=== PATIENT | male | born 2000 | race Caucasian/White ===

== ENCOUNTER 2024-07-30 23:54 | Inpatient (IN) | payer OTHER, BC, SELFPAY ==
[2024-07-30 23:58] VITALS: BP 141/93; PULSE 95; RESP 18; TEMP 37.1; O2SAT 99
[2024-07-31] VITALS (24 sets, daily range): BP systolic 108–140; BP diastolic 68–104; PULSE 60–146; RESP 9–21; TEMP 36.2–37.1; O2SAT 96–99; BMI 30.5; BMI 30.9
--- NOTE | 2024-07-31 00:01 | EKG_ITS ---
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
--- NOTE | 2024-07-31 00:49 | EDNOTE_ITS ---
ED Arrhythmia Palp. RME/HPI General Chief Complaint: Arrhythmia/Palpitations Stated Complaint: PALPITATIONS Time Seen by Provider: 07/31/24 00:17 Arrival date/time: 07/30/24 23:54 RME / HPI RME / HPI narrative: Dr. Davila?s Main ED Evaluation: 23yo male presents to the ED for a chief complaint of palpitations. Patient states he started having palpitations x 1 hour [employer]. He reports associated mild shortness of breath. Patient states he's had one episode of aFib in 2020 that was suspected to be due to excessive energy drinks and related to stress. Patient states he has since stopped drinking energy drinks. He was on diltiazem for 8 months, but is no longer on it due to not having any further incidents until today. He denies any chest pain, N/V or any other associated symptoms. Denies any alcohol or illicit drug use. No known allergies. Related Data Previous Rx's ?Medication ?Instructions ?Recorded amoxicillin 875 mg-potassium 1 tab PO Q12H #20 tabs clavulanate 125 mg tablet (Augmentin) fluticasone propionate 50 50 mcg intranasal QDAY #9.9 grams 08/04/17 mcg/actuation nasal spray,suspension (Flonase Allergy Relief) loratadine-pseudoephedrine ER 10 1 tab PO Q24H #10 tab s 08/04/17 mg-240 mg tablet,extended [id number] (Claritin-D 24 Hour) Allergies Allergy/AdvReac Type Severity Reaction Status Date / Time No Known Allergies Allergy Verified 07/30/24 23:58 Review of Systems Review of Systems Systems Reviewed: All systems reviewed, normal except as documented Past Medical History Past Medical History CARDIAC: Negative Congestive Heart Failure RESPIRATORY: Negative Chronic Obstructive Pulmonary Disease (COPD) GENITOURINARY: Negative Renal Disease ENDOCRINE: Negative Diabetes Mellitus Type 1 or Diabetes Mellitus Type 2 Social History SMOKING STATUS: Never smoker ED Exam Narrative Physical exam: GENERAL APPEARANCE: alert and oriented x 4, well-developed, well-nourished, no acute distress VITALS: All vitals were reviewed and the pulse ox is % on room air, which is normal according to my interpretation. HEENT: Normocephalic, atraumatic; pupils equal, round, reactive to light; EOMI; mucous membranes pink, moist; oropharynx clear NECK: Supple LUNGS: CTABL; no wheezes, no rales, no rhonchi HEART: Irregularly irregular tachycardia; normal S1, S2; no murmurs ABDOMEN: non distended; normal BS; soft, no tenderness, no guarding, no rebound; no masses, no organomegaly, no hernia BACK: no CVA tenderness EXTREMITIES: atraumatic; no edema NEUROLOGIC: awake; alert and oriented x4; cranial nerves II-XII grossly intact; no focal sensory or motor deficits PSYCHIATRIC: appropriate mood and affect SKIN: warm, dry, normal color; no rashes Course Quality Measures none Orders Category Date Time Status EKG (ED ONLY) *Do not use* NOW Care 07/31/24 00:01 Completed EKG (ED Only) Stat Exams 07/31/24 00:01 Draft EKG (ED Only) Stat Exams 07/31/24 00:01 Stop Req Reevaluation(s) Reevaluation #1: Patient is still in aFib with a HR in the 120s despite being given Cardizem 10mg and NS. His blood pressure has normalized. Cardizem drip ordered. Time: 02:12 Vital Signs Vital signs: Vital Signs Temperature 98.8 F 07/30/24 23:58 Pulse Rate 95 07/30/24 23:58 Respiratory Rate 18 07/30/24 23:58 Blood Pressure 141/93 H 07/30/24 23:58 Pulse Oximetry (%) 99 07/30/24 23:58 Oxygen Delivery Method Room Air 07/30/24 23:58 Arrhythmia/Palpitations MDM Narrative MDM Narrative:: Scribe Attestation: 07/31/24 Maria Morataya am scribing for and in the presence of Dr. Davila. Patient data External records reviewed:: [facility] previous records (Per chart review, patient has no previous ED visits or admissions to this facility.) Clinical information provided by:: patient Social determinants that could affect healthcare access:: none Patient has the following chronic illnesses:: none How is presenting disease/condition affected by chronic disease/condition?: no chronic disease Evaluation data The following diagnostics were reviewed and interpreted by me:: lab results and EKG tracing(s) Lab and/or radiology exams considered but not ordered:: none Interpretation Summary: CBC is normal, CMP is normal, Troponin is normal, TSH and Free T4 are normal, according to my interpretation. EKG done at 0010, aFib RvR, rate of 157, normal axis, no acute ischemia, according to my interpretation. Medications / Prescriptions Medications or Prescriptions considered but not ordered:: none Medication administrations:: Cardizem, NS Consultations Consultation(s) initiated? (list below): Yes Consultation #1 (Physician, Specialty, Details): Discussed case with [Dr. Pickett] from Hospitalist service regarding admission. Discussed patients ED course, exam findings, labs, and radiology results. The Hospitalist [agrees] to accept the patient for admission. Time: 02:13 Diagnosis Differential diagnosis arrhythmia/palpitations: palpitations, anxiety, artial fibrillation and artial flutter Most likely diagnosis given after review of the tests above:: see below Admission Indicated Admission indicated?: indicated Admission Request Was there a request for admission?: Yes Admission Attestation Admission request attestation: Discussed case with [] from Hospitalist service regarding admission. Discussed patients ED course, exam findings, labs, and radiology results. The Hospitalist [agrees,declines] to accept the patient for admission. Disposition Plan Disposition Plan: Admit Critical Care Time Critical Care Time Critical Care Time: Yes Total Critical Care Time (min.): 35 Attestation: The high probability of sudden, clinically significant deterioration in the pa tient?s condition required the highest level of my preparedness to intervene urgently. The services I provided to this patient were to treat and/or prevent clinically significant deterioration. Services included the following: chart data review, reviewing nursing notes and/or old charts, documentation time, workforce consultant collaboration regarding findings and treatment options, medication orders and management, direct patient care, vital sign assessments and ordering, interpreting and reviewing diagnostic studies and lab tests. Aggregate critical care time includes only time during which I was engaged in work directly related to the patient?s care, as described above, whether at bedside or elsewhere in the Emergency Department. It did not include time spent performing other reported procedures or the services of residents, students, nurses or physician assistants. Discharge Plan Plan Patient Disposition: Admit Acute Care w/in Hospital Prescriptions/Referrals Prescriptions/Med Rec: No Action loratadine-pseudoephedrine [Claritin-D 24 Hour] 10-240 mg tablet extended release 24 hr 1 tab PO Q24H Qty: 10 0RF fluticasone propionate [Flonase Allergy Relief] 50 mcg/actuation spray,suspension 50 mcg INTRANASAL QDAY Qty: 9.9 0RF amoxicillin-pot clavulanate [Augmentin] 875-125 mg tablet 1 tab PO Q12H Qty: 20 0RF Referrals: Dunia Hall NP [Primary Care Provider] - In 1 week Problem List Clinical Impression: Atrial fibrillation with rapid ventricular response Patient/Caregiver Discharge Instructions Print Language: Hungarian Stand Alone Forms: Kelly Award Info., Patient Portal Info Letter
[2024-07-31] MEDS: SODIUM CHLORIDE 0.9% 1000 ML 1,000 ML 999 ML IV (01:05)
[2024-07-31] MEDS: DILTIAZEM INJ 5 MG/ML VIAL 5 ML 10 MG IV (01:05)
[2024-07-31 01:30] LABS: Basophils # (Auto) 0.1 Thou/mm3 (0.0-0.2); Basophils % (Auto) 1 % (0-2.5); Eosinophils # (Auto) 0.1 Thou/mm3 (0.0-0.5); Eosinophils % (Auto) 1 % (0-10); Hematocrit 46.6 % (41.0-53.0); Hemoglobin 17.1 g/dL (13.5-16.0); Immature Granulocytes % (Auto) 0 % (0-0); Immature Granulocytes Auto 0.02 Thou/mm3 (0.00-0.00); Lymphocytes # (Auto) 4.5 Thou/mm3 (1.0-4.8); Lymphocytes % (Auto) 45 % (10-50); Mean Corpuscular HGB Conc 36.7 g/dl (31.0-37.0); Mean Corpuscular Hemoglobin 30.9 pg (25.0-35.0); Mean Corpuscular Volume 84 fL (80-100); Monocytes # (Auto) 0.6 Thou/mm3 (0.0-0.8); Monocytes % (Auto) 6 % (0-12); Neutrophils # (Auto) 4.7 Thou/mm3 (1.8-7.7); Neutrophils % (Auto) 47 % (37-80); Nucleated Red Blood Cell % 0 /100 WBC (0); Platelet Count 257 Thou/mm3 (140-440); RDW Standard Deviation 36.3 fL (35.1-43.9); Red Blood Count 5.54 Miln/mm3 (4.50-5.90); White Blood Count 10.1 Thou/mm3 (3.8-10.6)
[2024-07-31 01:43] LABS: Alanine Aminotransferase 26 U/L (10-49); Albumin/Globulin Ratio 1.8 (1.2-2.2); Alkaline Phosphatase 99 U/L (46-116); Anion Gap 10 (7-16); Aspartate Amino Transferase 23 U/L (0-34); BUN/Creatinine Ratio 14 Ratio (12-20); Bilirubin,Total 0.4 mg/dL (0.3-1.2); Blood Urea Nitrogen 15 mg/dL (9-23); Calcium 10.6 mg/dL (8.3-10.6); Calcium (Corrected) 10.6 mg/dL (8.5-10.1); Carbon Dioxide 27.4 mMol/L (20.0-31.0); Chloride 107 mMol/L (98-107); Creatinine (Component) 1.1 mg/dL (0.6-1.3); Estimated Creatinine Clearance 124.4 mL/min (>60); Free T4 (Free Thyroxine) 1.31 ng/dL (0.89-1.76); Globulin 2.8 gm/dL (2.3-3.5); Glucose 92 mg/dL (74-106); Magnesium 2.2 mg/dL (1.6-2.6); Osmolality,Calculated 287 (275-295); Potassium 3.8 mMol/L (3.4-5.1); Sodium 144 mMol/L (136-145); Thyroid Stimulating Hormone 2.96 uIU/mL (0.55-4.78); Total Protein 7.8 gm/dL (5.7-8.2); Troponin I < 0.020 ng/mL (0.0-0.045); eGFR > 60 See Note
--- NOTE | 2024-07-31 02:13 | XR_ITS ---
Examination: AP chest single view Technique one AP portable upright chest single view Exam date and time: July 31, 2022 at 0222 hrs. Comparison April 15, 2014 Indications: Findings: Normal heart size No pneumonia or pulmonary edema. The osseous structures are intact Impression: No active disease
--- NOTE | 2024-07-31 02:36 | ECHO_ITS ---
Transthoracic Echo Report Ht (in): 71 Wt (lb): 220 Exam Location: Echo Lab Status: Emergency Procurement Analyst: CAMILLE Curry^^^^ Indications: Procedure Performed: BP: 128 / 74 HR: 153 Rhythm: Atrial fibrillation Technical Quality: Fair MEASUREMENTS (Male / Female) Normal Values 2D ECHO LV Diastolic Diameter PLAX 4.6 cm 4.2 - 5.9 / 3.9 - 5.3 cm LV Systolic Diameter PLAX 3.0 cm IVS Diastolic Thickness 1.0 cm 0.6 - 1.0 / 0.6 - 0.9 cm LVPW Diastolic Thickness 0.8 cm 0.6 - 1.0 / 0.6 - 0.9 cm LV Relative Wall Thickness 0.4 LVOT Diameter 2.1 cm Aortic Root Diameter 3.6 cm LA Systolic Diameter LX 3.4 cm 3.0 - 4.0 / 2.7 - 3.8 cm LV Ejection Fraction MOD BP 60.6 % >= 55 % LV Cardiac Index MOD BP 3978.1 cm?/min?m? LV Ejection Fraction MOD 4C 64.5 % LV Cardiac Index MOD 4C 4323.1 cm?/min?m? LV Ejection Fraction 4C AL 65.1 % LV Cardiac Index 4C AL 4462.4 cm?/min?m? LV Ejection Fraction MOD 2C 53.1 % LV Cardiac Index MOD 2C 3288.0 cm?/min?m? LV Ejection Fraction 2C AL 55.3 % LV Cardiac Index 2C AL 3476.7 cm?/min?m? LA Volume Index 18.3 cm?/m? 16 - 28 cm?/m? Ascending Aorta Diameter 3.7 cm DOPPLER AV Peak Velocity 153.5 cm/s AV Peak Gradient 9.4 mmHg AV Mean Gradient 7.0 mmHg AV Velocity Time Integral 24.6 cm LVOT Peak Velocity 103.0 cm/s LVOT Peak Gradient 4.2 mmHg LVOT Velocity Time Integral 20.9 cm LVOT Cardiac Index 4897.4 cm?/min?m? AV Area Cont Eq vti 2.9 cm? AV Area Cont Eq pk 2.3 cm? MV Area PHT 2.9 cm? MR Peak Velocity 429.0 cm/s MR Peak Gradient 73.6 mmHg Mitral E Point Velocity 74.2 cm/s Mitral A Point Velocity 37.8 cm/s Mitral E to A Ratio 2.0 LV E' Lateral Velocity 13.4 cm/s Mitral E to LV E' Lateral Ratio 5.5 LV E' Septal Velocity 14.7 cm/s Mitral E to LV E' Septal Ratio 5.0 TR Peak Velocity 227.0 cm/s TR Peak Gradient 20.6 mmHg RVOT Peak Velocity 68.7 cm/s FINDINGS Left Ventricle Normal left ventricular size, wall thickness, systolic function with no obvious regional wall motion abnormalities. Normal left ventricular diastolic filling pattern for age. The ejection fraction is visually estimated at 65 %. Right Ventricle The right ventricle is normal in size and systolic function. The estimated right ventricular systolic pressure, 33 mmHg. Left Atrium The left atrium is normal by two-dimensional, color flow and Doppler imaging with no structural abnormalities, no thrombus formation present. Right Atrium The right atrium is normal by two-dimensional imaging, color flow and Doppler imaging with no structural abnormalities, no thrombus formation present. Atrial Septum The interatrial septum appears normal with no evidence of a shunt. Aorta The aorta is normal by two-dimensional, color flow and Doppler interrogation. Mitral Valve Structurally normal mitral valve. Mild mitral regurgitation. Aortic Valve The aortic valve is trileaflet and normal by two-dimensional, color flow and Doppler interrogation. There is no significant aortic valve regurgitation. Tricuspid Valve There is mild tricuspid valve regurgitation. Pulmonic Valve Trivial pulmonic valve regurgitation. Vessels The pulmonary artery appears normal. The inferior vena cava pulmonary and hepatic veins appear normal. Pericardium The pericardium is normal by two-dimensional imaging. There is no significant pericardial effusion. CONCLUSIONS indication: Afib The transthoracic study is normal by two-dimensional, color flow imaging and Doppler interrogation. Normal left ventricular size and function. Approximate ejection fraction is 65%. Mitral valve prolapse with mild mitral regurgitation Mild tricusoid regurgitation Diamond Hardwick (Electronically Signed) Final Date: 31 July 2024 09:59
--- NOTE | 2024-07-31 02:39 | EVENTNT_ITS ---
Documentation for date of: 07/31/24 Event Note Event Note: A 23-year-old male presented to the ER with the chief complaint of palpitations. The patient reports that the palpitations began approximately one hour prior to arrival while he was lying in bed. He describes a sudden onset of rapid heart rate, feeling as if his heart was beating out of his chest. He used his Apple Watch to perform an EKG, which suggested possible atrial fibrillation, prompting him to seek medical evaluation. He denies associated fever, recent illness, chest pain, dizziness, syncope, or recent stimulant use. He reports a similar episode of atrial fibrillation in 2020, which was attributed to excessive energy drink consumption and stress during college finals. At that time, he converted to normal sinus rhythm after treatment with diltiazem and was prescribed oral diltiazem for eight months, which was later discontinued. He denies any prior history of recurrent atrial fibrillation until tonight. The patient has no known history of hypertension, diabetes, or other significant medical conditions. He reports no current medication use aside from a rescue inhaler, which he has not used in several years. Social history is significant for occasional alcohol consumption, approximately two drinks per week, with the last drink occurring a couple of days prior to presentation. He denies tobacco or drug use. In the Emergency Department, the patient was initially evaluated with vital signs recorded as temperature 98.8?F, heart rate 142 bpm, respiratory rate 18 breaths per minute, and blood pressure 138/104 mmHg. EKG confirmed atrial fibrillation with rapid ventricular response. Laboratory results revealed WBC 10.4, hemoglobin 17.1, platelet count 257, sodium 144, potassium 3.8, BUN 15, creatinine 1.1, TSH 2.96, and free T4 1.31. A chest X-ray showed no active disease. The patient was treated with a diltiazem 10 mg IV bolus followed by a continuous infusion. He was admitted for further management with cardiology consultation planned for the following morning. #Atrial Fibrillation with Rapid Ventricular Response * Assessment: The patient presents with acute-onset atrial fibrillation with RVR, confirmed by EKG. He has a prior history of atrial fibrillation in 2020, likely triggered by energy drink consumption and stress, but no known history of structural heart disease or recurrent arrhythmias. His current episode appears idiopathic, with no clear provoking factors such as infection, thyroid dysfunction, or stimulant use. He remains hemodynamically stable, with no evidence of acute ischemia or heart failure. Initial response to IV diltiazem was appropriate. * Plan: * Continue IV diltiazem infusion with transition to oral therapy as tolerated. * Cardiology consultation for further workup and long-term management. * Rhythm control consideration: Given the patient?s young age, evaluate for cardioversion (pharmacologic or electrical) if AF persists. Long-term rhythm control options (e.g., antiarrhythmic therapy) should be discussed with cardiology. * Anticoagulation: [id number] Score = 0; anticoagulation not indicated at this time. * Maintain normal potassium and magnesium levels to prevent further arrhythmias. * Continuous telemetry monitoring while inpatient. * Patient education on avoiding potential triggers (e.g., caffeine, energy drinks, excessive alcohol), recognizing AF symptoms, and the importance of cardiology follow-up.
[2024-07-31] MEDS: DILTIAZEM INJ 125 MG in DEXTROSE 5%-WATER 100 ML IV (02:51)
--- NOTE | 2024-07-31 02:57 | ESHP_ITS ---
Documentation for date of: 07/31/24 [facility] History of Present Illness History of present illness: Is a 23-year-old male with PMH of exercise-induced asthma, previous non- recurrent episode of of A-fib in 2020, presenting with palpitation and shortness of breath. Patient at bedside, sitting at home watching TV around 11 PM when he noticed palpitations and his heart associated with trouble catching his breath. He states it felt similar to when he had A-fib 2 years ago and decided to return to hospital. He had similar episode in 2020 for which at an outside hospital. At the time it was attributed to excessive energy drinks which she had stopped since then. He had been followed up by cardiology who performed echocardiogram, and stress echo which were all negative. He was on DILTIAZEM daily which was stopped 8 months ago by his biomedical equipment support specialist. No recurrent episodes until now. States he doesn't drink energy drinks since the incident. He consumes 1 coffee daily. Denies history of alcohol or tobacco use, COCAINE, METHAMPHETAMINE, other drug use or stimulants, [id number] medications, or supplements supplements. He is only medication is an inhaler which he uses occasionally for exercise-induced asthma but haven't used in months. Denies current or previous stress. No excessive workout or exercise. History pertinent for corticosteroids due to premature , and recurrent bronchitis during infancy which had resolved by the time he was 1 to 2 years old. No family history of congenital heart defect, valvular disease, HCM, sudden cardiac , A-fib, thyroid disease, or autoimmune or inflammatory disease. Denies headaches, fever, chills, visual changes, seizures, chest pain, cough, abdominal pain, N/V/D/C, dysuria, urinary frequency or urgency, or abnormal bleed. ED COURSE: Afebrile, HR 146, BP 126/85, satting 98% on room air. CBC significant for hemoglobin 17.1, otherwise WNL. Calcium 10.6. Remainder chemistry panel was normal including troponin, TSH/free T4, and electrolytes. EKG showed A-fib with RVR, HR 157. CXR does not show active disease. He was started on DILTIAZEM drip and ENOXAPARIN. Admitted for A-fib with RVR. PMHx: Premature , recurrent bronchitis during infancy, exercise-induced asthma. PSHx: None. MEDS: ALBUTEROL inhaler occasionally. ALLERGIES: NKA. FHx: No relevant family history as explained above. SH: Denies alcohol, tobacco, illicit drug use or stimulant use. Exam Vital Signs Temp Pulse Resp BP Pulse Ox O2 Del Method 98.7 F 146 H 17 126/85 H 98 Room Air 07/31/24 02:16 07/31/24 02:51 07/31/24 02:16 07/31/24 02:51 07/31/24 02:16 07/31/24 02:16 Results: Labs 07/31/24 04:30 07/31/24 00:55 Labs: Short CBC 07/31/24 Range/Units 00:55 WBC 10.1 (3.8-10.6) Thou/mm3 Hgb 17.1 H (13.5-16.0) g/dL Hct 46.6 (41.0-53.0) % Plt Count 257 (140-440) Thou/mm3 BMP 07/31/24 00:55 Sodium 144 Potassium 3.8 Chloride 107 Carbon Dioxide 27.4 BUN 15 Creatinine 1.1 Glucose 92 Calcium 10.6 Cardiac Enzymes 07/31/24 Range/Units 00:55 Troponin I < 0.020 (0.0-0.045) ng/mL Liver Function 07/31/24 Range/Units 00:55 Total Bilirubin 0.4 (0.3-1.2) mg/dL AST 23 (0-34) U/L ALT 26 (10-49) U/L Alkaline Phosphatase 99 (46-116) U/L Albumin 5.0 (3.5-5.0) gm/dL Quality Measures Quality Measures none Medications Home Medications and Allergies Allergies Allergy/AdvReac Type Severity Reaction Status Date / Time No Known Allergies Allergy Verified 07/30/24 23:58 Visit Medications Enoxaparin Sodium (Enoxaparin Sod Inj 40 Mg/0.4 Ml Syringe) 40 mg SC QDAY [facility] Stop: 08/14/24 08:59 Diltiazem HCl 125 mg/ Dextrose 125 mls @ 5 mls/hr IV .Q24H [facility]; Protocol Stop: 08/30/24 02:12 Last Admin: 07/31/24 02:51 Dose: 5 mg/hr, 5 mls/hr Discontinued Medications Diltiazem HCl (Diltiazem Inj 5 Mg/Ml Vial 5 Ml) 10 mg IV X1 ONE Stop: 07/31/24 00:51 Last Admin: 07/31/24 01:05 Dose: 10 mg Sodium Chloride (Ns) 1,000 mls @ 999 mls/hr IV .Q1H1M ONE Stop: 07/31/24 01:50 Last Infusion: 07/31/24 02:19 Dose: Infused Assessment & Plan Plan In summary: 39-year-old male with PMH of exercise-induced asthma, previous non- recurrent episode of of A-fib in 2020, presenting with palpitation and shortness of breath. Admitted for atrial fibrillation with RVR. Continued on DILTIAZEM drip. Appreciate recommendations from cardiology, Dr. Enamorado. Atrial fibrillation with RVR DDx: Idiopathic, caffeine induced, dehydration, lung dysfunction, electrophysiology. Presenting with palpitations and shortness of breath. Denies chest pain, fever, or systemic illness, or stress. EKG showed A-fib with RVR, HR 157, QTc 407. Had similar recurrent episode in 2020 with benign cardiac workup attributed to excessive energy drinks consumption. He was previously on DILTIAZEM daily for 8 months, discontinued by cardiology. No family history of cardiovascular, cardiopulmonary, sudden , rheumatoid disease. Review of system overall negative except for premature and recurrent bronchitis during infancy. Drinks 1 cup of coffee daily. Denies use of alcohol, tobacco, illicit drugs, stimulants, supplements, or energy drinks. Labs significant for hemoglobin 17.1, calcium 11.6, otherwise benign. Normal thyroid function. No electrolyte abnormalities. Cardiac exam showed A-fib, no murmur, no rubs or gallops, clear breath sounds bilaterally. Currently on room air, satting in upper 90s. [id number] score 0. ? Continue DILTIAZEM GGT ? Continue LOVENOX 40 mg daily ? Maintain K > 4.0 and Mg > 2.0 ? Pending echocardiogram ? Pending cardiology recommendations ? Pending UTOX ? Daily labs Polycythemia Hypercalcemia Hemoglobin 17.1. PLT 257. Calcium 10.6. No history of hemoglobinopathy. Possibly related to dehydration. Completed 1 L NS bolus in ED. ? Continue monitoring ? Consider further workup if it does not correct with hydration. Health maintenance Diet: Regular diet GI prophylaxis: Not indicated DVT prophylaxis: LOVENOX Antibiotics: Not indicated CODE STATUS: Full code Disposition: Pending cardiology recommendations Patient case was discussed with attending, Elliot Pickett MD. Bill Higgins DO PGYI Attending Provider Attestation/Addendum Pt was evaluated and plan formulated together with the housestaff team. I have reviewed the residents note above and agree with most of its content. Please refer to the residents note for additional details.
[2024-07-31] MEDS: POTASSIUM CHLORIDE 20 mEq TABCR PO (03:47)
[2024-07-31 04:19] LABS: Amphetamine/Methamp Scrn,U Negative (Negative); Barbiturate Screen,Urine Negative (Negative); Benzodiazepines Screen,Urine Negative (Negative); Benzoylecgonine Screen, Ur Negative (Negative); Fentanyl Screen,Urine Negative (Negative); Opiate Screen,Urine Negative (Negative); THC Screen,Urine Negative (Negative)
[2024-07-31 05:15] LABS: Basophils # (Auto) 0.1 Thou/mm3 (0.0-0.2); Basophils % (Auto) 1 % (0-2.5); Eosinophils # (Auto) 0.2 Thou/mm3 (0.0-0.5); Eosinophils % (Auto) 2 % (0-10); Hematocrit 44.3 % (41.0-53.0); Hemoglobin 16.2 g/dL (13.5-16.0); Immature Granulocytes % (Auto) 0 % (0-0); Immature Granulocytes Auto 0.02 Thou/mm3 (0.00-0.00); Lymphocytes # (Auto) 3.8 Thou/mm3 (1.0-4.8); Lymphocytes % (Auto) 43 % (10-50); Mean Corpuscular HGB Conc 36.6 g/dl (31.0-37.0); Mean Corpuscular Hemoglobin 30.9 pg (25.0-35.0); Mean Corpuscular Volume 85 fL (80-100); Monocytes # (Auto) 0.6 Thou/mm3 (0.0-0.8); Monocytes % (Auto) 7 % (0-12); Neutrophils # (Auto) 4.1 Thou/mm3 (1.8-7.7); Neutrophils % (Auto) 47 % (37-80); Nucleated Red Blood Cell % 0 /100 WBC (0); Platelet Count 254 Thou/mm3 (140-440); RDW Standard Deviation 36.3 fL (35.1-43.9); Red Blood Count 5.24 Miln/mm3 (4.50-5.90); White Blood Count 8.7 Thou/mm3 (3.8-10.6)
--- NOTE | 2024-07-31 05:33 | PC.NURSE ---
REPORT GIVEN TO EMILY RAGLAND. ALL QUESTIONS ASKED AND ANSWERED. PATIENT REMAINS ON ROOM AIR. PATIENTS IVF INFUSING WITHOUT DIFFICULTY. PATIENT TAKEN TO ROOM BY STAFF. NO DISTRESS NOTED AT TRANSFER.
[2024-07-31 06:06] LABS: Anion Gap 9 (7-16); BUN/Creatinine Ratio 13 Ratio (12-20); Blood Urea Nitrogen 12 mg/dL (9-23); Calcium 9.5 mg/dL (8.3-10.6); Carbon Dioxide 27.4 mMol/L (20.0-31.0); Chloride 106 mMol/L (98-107); Creatinine (Component) 0.9 mg/dL (0.6-1.3); Glucose 91 mg/dL (74-106); Osmolality,Calculated 282 (275-295); Sodium 142 mMol/L (136-145); eGFR > 60 See Note
[2024-07-31] MEDS: ENOXAPARIN SOD INJ 40 MG/0.4 ML SYRINGE SC (08:25)
[2024-07-31] MEDS: POTASSIUM CHLORIDE 10% 20 MEQ/15 ML UDC PO (09:37)
[2024-07-31] MEDS: Magnesium Sulfate 2 GM Ivpb 2 GM/50 ML BAG IV (09:38)
--- NOTE | 2024-07-31 09:57 | PC.SS ---
Follow up note: Dr. Enamorado is consulting. Pt has AF[employer].
--- NOTE | 2024-07-31 11:34 | ESPR_ITS ---
<Statement entered by Manjit Gonzalez MD - 07/31/24 14:22> Patient admitted overnight for Afib RVR, has history of x1 episode in 2020. Currently on diltiazem, echocardiogram was WNL, pending further reccs by Dr. Enamorado. I discussed with and supervised the internet security specialist physician involved in the care of this patient. Patient assessment and plan was discussed with entire medicine team, including my attending. I agree with the assessment and plan as documented by internet security specialist doctor. Patient care was discussed with my attending physician Dr. Lissette Gonzalez, PGY-2 Documentation for date of: 07/31/24 Subjective Subjective Interval history: Patient was seen and examined at bedside this AM. Patient tolerating diet, adequate urine output and mentation is at baseline. Patient endorses improvement of shortness of breath, however still complains of palpitations both at rest and ambulation. From telemetry review patient is still in A-fib with rates between the 100s?150s overnight. Currently on diltiazem infusion at 10 Mg per hour and amiodarone infusion. K4, Mg 2. Repleted with KCl 20 mEq p.o. x 1 and magnesium sulfate 2 g IV x 1 Transthoracic echocardiogram completed on 07/31/2024 findings include: Normal left ventricular size and function. Estimated EF 65%. Mitral valve prolapse with mild MR. Mild TR Exam Vital Signs Temp Pulse Resp BP Pulse Ox O2 Del Method 98.5 F 105 H 18 140/75 H 98 Room Air 07/31/24 08:00 07/31/24 08:00 07/31/24 08:00 07/31/24 08:00 07/31/24 08:00 07/31/24 08:00 Narrative Exam Constitutional Alert, oriented x 3 and comfortable. Young male HEENT Vision grossly intact. Patent nares. Trachea midline Respiratory Chest normal on inspection and clear auscultation bilaterally Cardiovascular S1 and S2 audible, RRR. No murmurs carotid bruit. No gross JVD. Abdominal Soft and non tender to palpation in all quadrants. BS + Genitourinary No bladder tenderness, no flank pain. Normal to palpation Musculoskeletal Extremities tone within normal limits. No LE edema. Neurological CN II - XII grossly intact. Extremity motor and sensation grossly intact. Skin Warm, dry and intact. No apparent lesions. Psychiatric Patient has good affect, is cooperative Objective Labs 07/31/24 04:30 07/31/24 04:30 Labs: Laboratory Results - last 24 hr 07/31/24 07/31/24 07/31/24 00:55 03:40 04:30 WBC 10.1 8.7 RBC 5.54 5.24 Hgb 17.1 H 16.2 H Hct 46.6 44.3 MCV 84 85 MCH 30.9 30.9 MCHC 36.7 36.6 RDW Std Deviation 36.3 36.3 Plt Count 257 254 Neut % (Auto) 47 47 Lymph % (Auto) 45 43 Moody % (Auto) 6 7 Eos % (Auto) 1 2 Baso % (Auto) 1 1 Neut # (Auto) 4.7 4.1 Lymph # (Auto) 4.5 3.8 Moody # (Auto) 0.6 0.6 Eos # (Auto) 0.1 0.2 Baso # (Auto) 0.1 0.1 Immature Gran # (Auto) 0.02 H 0.02 H Absolute Nucleated RBC 0.00 0.00 Immature Gran % 0 0 Nucleated RBC % 0 0 Sodium 144 142 Potassium 3.8 4.0 Chloride 107 106 Carbon Dioxide 27.4 27.4 Anion Gap 10 9 BUN 15 12 Creatinine 1.1 0.9 Estim Creat Clear Calc 124.4 152.0 eGFR > 60 > 60 BUN/Creatinine Ratio 14 13 Glucose 92 91 Calculated Osmolality 287 282 Calcium 10.6 9.5 Corrected Calcium 10.6 H Magnesium 2.2 2.0 Total Bilirubin 0.4 AST 23 ALT 26 Alkaline Phosphatase 99 Troponin I < 0.020 Total Protein 7.8 Albumin 5.0 Globulin 2.8 Albumin/Globulin Ratio 1.8 TSH 2.96 Free T4 1.31 Urine Opiates Screen Negative Urine Fentanyl Screen Negative Ur Barbiturates Screen Negative U Amphetamin/Meth Scrn Negative U Benzodiazepines Scrn Negative U Cocaine Metab Screen Negative U Marijuana (THC) Screen Negative Quality Measures Quality Measures none Assessment & Plan Assessment Current Active Medications: Generic Name Dose Route Start Last Admin Trade Name Freq PRN Reason Stop Dose Admin Enoxaparin Sodium 40 mg 07/31/24 09:00 07/31/24 08:25 Enoxaparin Sod Inj 40 Mg/0.4 Ml Syringe SC 08/14/24 08:59 40 mg QDAY LORRIE Administration Diltiazem HCl 125 mg/ Dextrose 125 mls @ 10 mls/hr 07/31/24 10:07 IV 08/30/24 10:06 .[id number] LORRIE Protocol 10 MG/HR Amiodarone HCl/Dextrose 360 mg in 200 mls @ 16.667 mls/hr 07/31/24 16:46 Nexterone Ivpb IV 08/01/24 16:45 .Q12H LORRIE Amiodarone HCl/Dextrose 360 mg in 200 mls @ 33.333 mls/hr 07/31/24 10:46 Nexterone Ivpb IV 07/31/24 16:45 .Q6H ONE Plan Patient is a 23-year-old male with past history of paroxysmal A-fib [2020] no longer on rate control presented with a chief complaint of palpitations and shortness of breath. Admitted for atrial fibrillation with RVR. Atrial fibrillation with RVR?paroxysmal Patient has a history of A-fib in 2020 and was previously on diltiazem. He was diagnosed at [facility] in [place]. Patient presented with shortness of breath and palpitations EKG significant for atrial fibrillation with RVR, rate 157. No acute ST changes Transthoracic echocardiogram completed on 07/31/2024 findings include: Normal left ventricular size and function. Estimated EF 65%. Mitral valve prolapse with mild MR. Mild TR [id number]? 0. No need for anticoagulation In the ED patient received diltiazem 10 Mg IV x 1 and was subsequently started on diltiazem infusion. Patient endorses improvement of shortness of breath, however still complains of palpitations both at rest and ambulation. From telemetry review patient is still in A-fib with rates between the 100s?150s overnight. Currently on diltiazem infusion at 10 Mg per hour and amiodarone infusion. K4, Mg 2. Repleted with KCl 20 mEq p.o. x 1 and magnesium sulfate 2 g IV x 1 Plan: ? Continue telemetry monitoring ? Requested medical records from [facility] ? Increased diltiazem infusion to 10 Mg per hour ? Started on amiodarone bolus and infusion as per cardiology recommendations ? Cardiology, Dr. Omari Enamorado consulted and closely following the case. Appreciate recommendations Health maintenance: Disposition: Pending cardiology recommendations. Diltiazem and amiodarone infusion Diet: Regular Lines: pIVs GI Prophylaxis: None Thrombo Prophylaxis: Enoxaparin Code status: FULL CODE Plan of care discussed with Attending Dr. Mclaughlin and PGY2 Dr. Carlos Garcia MD PGY 1 Attending Provider Attestation/Addendum Josie Eric DO, attest that I was physically present for the reyna portions of the service and evaluated the patient with the resident and I reviewed and discussed the case with the resident and agree with the resident's findings and plans of care as documented above Patient seen and evaluated this AM. Patient states he continues to have palpitations. HR remains uncontrolled in the 150s on tele. Will increase cardizem drip to 10mg/hr. Patient was previously diagnosed with afib in the past and took cardizem. He does not recall the dose. Patient denies any chest pain or shortness of breath. He denies any stressors or personal/ family history of cardiac disease. Echo shows normal LV size and function. EF of 65% MVP with mild MR. Mild TR. Will f/u with cardiology recommendations.
[2024-07-31] MEDS: AMIODARONE 150 MG IVPB 150 MG/100 ML BAG 600 MG IV (14:53)
--- NOTE | 2024-07-31 15:05 | PC.SS ---
Follow up note: Consulting Dr. Enamorado. Pt has AFB. Pt will return home upon dc.
[2024-07-31] MEDS: AMIODARONE 360 MG IVPB 360 MG/200 ML BAG 33.333 MG IV (15:11)
[2024-07-31] MEDS: DILTIAZEM 30 MG TABLET 60 MG PO ×3 (15:35→23:14)
--- NOTE | 2024-07-31 17:24 | ESCONSULT_ITS ---
<Statement entered by Estefani Enamorado MD - 08/01/24 09:23> I evlauate the patient personall, has paroxysmal AFIB SECOND EPISODE in 4 years will cont Amiodarone until conversion to NSR and disharge in AMtreatment plan as documented by PGY 1 DR Novak HPI Data of Consult Requesting Physician: Elliot Pickett MD Admitting Provider: Elliot Pickett MD Attending Provider: Elliot Pickett MD Primary Care Provider: Dunia Hall NP Consult Narrative Reason for consult: A-fib with RVR History of present illness: 23-year-old male with PMH of exercise-induced asthma, previous non-recurrent episode of of A-fib in 2020, presenting with palpitation and shortness of breath. Patient was sitting at home watching TV around 11 PM when he noticed palpitations and his heart associated with trouble catching his breath. He states it felt similar to when he had A-fib 2 years ago and decided to return to hospital. He had similar episode in 2020 for which he was seen at an outside hospital. At the time it was attributed to excessive energy drinks which she had stopped since then. He had been followed up by cardiology who performed echocardiogram, and stress echo which were all negative. He was on DILTIAZEM daily which was stopped 8 months ago by his fiber design engineer. No recurrent episodes until now. States he doesn't drink energy drinks since the incident. He consumes 1 coffee daily. Denies history of alcohol or tobacco use, COCAINE, METHAMPHETAMINE, other drug use or stimulants, [id number] medications, or supplements supplements. He is only medication is an inhaler which he uses occasionally for exercise-induced asthma but haven't used in months. Denies current or previous stress. No excessive workout or exercise. No family history of congenital heart defect, valvular disease, HCM, sudden cardiac , A-fib, thyroid disease, or autoimmune or inflammatory disease. Denies headaches, fever, chills, visual changes, seizures, chest pain, cough, abdominal pain, N/V/D/C, dysuria, urinary frequency or urgency, or abnormal bleed. ED COURSE: Afebrile, HR 146, BP 126/85, satting 98% on room air. CBC significant for hemoglobin 17.1, otherwise WNL. Valcium 10.6. Remainder chemistry panel was normal including troponin, TSH/free T4, and electrolytes. EKG showed A-fib with RVR, HR 157. CXR does not show active disease. Patient was given 10 mg diltiazem x 1 and started on diltiazem drip, heart rate decreased with patient remained in A-fib. Cardiology consulted for for A-fib with RVR. Patient seen and examined at bedside, resting comfortably. Patient denies chest pain, shortness of breath, lightheadedness, fatigue, orthopnea. Patient does endorse mild intermittent palpitations. Patient expresses some anxiety regarding condition, has been closely monitoring his telemetry box is concerned that the fluctuations in heart rate. It was explained to patient that telemetry box cannot accurately track heart rate in A-fib, on exam his heart rate was approximately 80 bpm. Will attempt to convert to sinus rhythm using Amio bolus and infusion, no plans to start p.o. amiodarone. If patient fails to convert, will consider electrical cardioversion tomorrow as it will be within 48 hours of A-fib onset. cc:: cc: Elliot Pickett MD Review of Systems Review of Systems Systems Reviewed: All systems reviewed, normal except as documented Past Medical History Past Medical History Comments PMH COMMENT: PMHx: Premature , recurrent bronchitis during infancy, exercise-induced asthma. PSHx: None. MEDS: ALBUTEROL inhaler occasionally. ALLERGIES: NKA. FHx: No relevant family history as explained above. SH: Denies alcohol, tobacco, illicit drug use or stimulant use. Exam Vital Signs Temp Pulse Resp BP Pulse Ox O2 Del Method 97.2 F 99 19 119/68 99 Room Air 07/31/24 12:00 07/31/24 16:00 07/31/24 12:00 07/31/24 15:35 07/31/24 12:07/31/24 12:00 Narrative Exam PE: Gen: Well-developed and well-nourished. HEENT: NCAT, PERRLA, EOMI, MMM, anicteric conjunctivae. CVS: normal S1 and S2. No M/R/G. Irregular irregular rhythm, regular rate. Resp: CTA B/L. No rhonchi, rales, crackles or wheezing. Abd: soft, non-tender, non-distended. BS+ in all 4 quadrants. MSK: Good ROM in BUE & BLE. No edema or rash. Neuro: CN II-XII grossly intact. Strength 5/5 in BUE & BLE. Alert and oriented x3. Psych: appropriate mood and affect. Results Labs 07/31/24 04:30 07/31/24 04:30 Labs: Short CBC 07/31/24 07/31/24 Range/Units 00:55 04:30 WBC 10.1 8.7 (3.8-10.6) Thou/mm3 Hgb 17.1 H 16.2 H (13.5-16.0) g/dL Hct 46.6 44.3 (41.0-53.0) % Plt Count 257 254 (140-440) Thou/mm3 BMP 07/31/24 07/31/24 00:55 04:30 Sodium 144 142 Potassium 3.8 4.0 Chloride 107 106 Carbon Dioxide 27.4 27.4 BUN 15 12 Creatinine 1.1 0.9 Glucose 92 91 Calcium 10.6 9.5 Cardiac Enzymes 07/31/24 Range/Units 00:55 Troponin I < 0.020 (0.0-0.045) ng/mL Liver Function 07/31/24 Range/Units 00:55 Total Bilirubin 0.4 (0.3-1.2) mg/dL AST 23 (0-34) U/L ALT 26 (10-49) U/L Alkaline Phosphatase 99 (46-116) U/L Albumin 5.0 (3.5-5.0) gm/dL Quality Measures Quality Measures VTE prophylaxis Medications Home Medications and Allergies Home Medications ?Medication ?Instructions ?Recorded ?Confirmed ?Type No Known Home Medications 07/31/2407/12 History Allergies Allergy/AdvReac Type Severity Reaction Status Date / Time No Known Allergies Allergy Verified 07/30/24 23:58 Visit Medications Diltiazem HCl (Diltiazem 30 Mg Tablet) 60 mg PO Q6HR [facility] Stop: 08/30/24 14:44 Last Admin: 07/31/24 15:35 Dose: 60 mg Enoxaparin Sodium (Enoxaparin Sod Inj 40 Mg/0.4 Ml Syringe) 40 mg SC QDAY LORRIE Stop: 08/14/24 08:59 Last Admin: 07/31/24 08:25 Dose: 40 mg Diltiazem HCl 125 mg/ Dextrose 125 mls @ 10 mls/hr IV .[id number] [facility]; Protocol Stop: 08/30/24 10:06 Amiodarone HCl/Dextrose (Nexterone Ivpb) 360 mg in 200 mls @ 16.667 mls/hr IV .Q12H LORRIE Stop: 08/01/24 20:49 Amiodarone HCl/Dextrose (Nexterone Ivpb) 360 mg in 200 mls @ 33.333 mls/hr IV .Q6H ONE Stop: 07/31/24 21:14 Last Admin: 07/31/24 15:33 Dose: Not Given Discontinued Medications Diltiazem HCl (Diltiazem Inj 5 Mg/Ml Vial 5 Ml) 10 mg IV X1 ONE Stop: 07/31/24 00:51 Last Admin: 07/31/24 01:05 Dose: 10 mg Flecainide Acetate (Flecainide Acet 50 Mg Tablet) 100 mg PO X1 ONE Stop: 07/31/24 14:00 Sodium Chloride (Ns) 1,000 mls @ 999 mls/hr IV .Q1H1M ONE Stop: 07/31/24 01:50 Last Infusion: 07/31/24 02:19 Dose: Infused Diltiazem HCl 125 mg/ Dextrose 125 mls @ 5 mls/hr IV .Q24H [facility]; Protocol Stop: 08/30/24 02:12 Last Admin: 07/31/24 02:51 Dose: 5 mg/hr, 5 mls/hr Magnesium Sulfate (Magnesium Sulfate Ivpb) 2 gm in 50 mls @ 25 mls/hr IV X1 ONE Stop: 07/31/24 10:17 Last Admin: 07/31/24 09:38 Dose: 25 mls/hr Amiodarone HCl/Dextrose (Nexterone Ivpb) 360 mg in 200 mls @ 16.667 mls/hr IV .Q12H [facility] Stop: 08/01/24 16:45 Amiodarone HCl/Dextrose (Nexterone Ivpb) 360 mg in 200 mls @ 33.333 mls/hr IV .Q6H ONE Stop: 07/31/24 16:45 Amiodarone HCl/Dextrose (Nexterone Ivpb) 150 mg in 100 mls @ 600 mls/hr IV .Q10M ONE Stop: 07/31/24 14:49 Last Admin: 07/31/24 14:53 Dose: 600 mls/hr Amiodarone HCl/Dextrose (Nexterone Ivpb) 360 mg in 200 mls @ 33.333 mls/hr IV .Q6H ONE Stop: 07/31/24 20:49 Last Admin: 07/31/24 15:11 Dose: 33.333 mls/hr Potassium Chloride (Potassium Chloride 20 Meq Tabcr) 20 meq PO X1 ONE Stop: 07/31/24 03:28 Last Admin: 07/31/24 03:47 Dose: 20 meq Potassium Chloride (Potassium Chloride 10% 20 Meq/15 Ml Udc) 20 meq PO X1 ONE Stop: 07/31/24 08:19 Last Admin: 07/31/24 09:37 Dose: 20 meq Assessment & Plan Plan 23-year-old male with PMH of exercise-induced asthma, previous non-recurrent episode of of A-fib in 2020, presenting with palpitation and shortness of breath, admitted and cardiology consulted for A-fib with RVR. #Atrial fibrillation with RVR?paroxysmal Patient has a history of A-fib in 2020 and was previously on diltiazem. He was diagnosed at [facility] in [place]. Patient had no further episodes of A-fib until 11 PM 07/30/2024, when he developed severe palpitations similar to previous episode. Patient presented to ED where he was found to have A-fib with RVR confirmed by EKG, rate of 157, no acute ST changes. TTE showed normal left ventricular size and function, no signs of clot. [id number] score 0, no need for anticoagulation In the ED patient received diltiazem 10 Mg IV x 1 and was subsequently started on diltiazem infusion. Patient rate decreased to below 110, patient expressed improvement in shortness of breath, does note intermittent palpitations but improved from initial symptoms. Will attempt to convert patient back to sinus rhythm pharmacologically, if that fails may consider electrical cardioversion tomorrow. -Continue telemetry monitoring -Requested medical records from [facility] -Switched from diltiazem drip to diltiazem 60 mg p.o. every 6 hours -Started on amiodarone bolus and infusion, will not transition to p.o. amiodarone -N.p.o. after midnight DVT prophylaxis: Lovenox GI prophylaxis: None Diet: Regular, n.p.o. after midnight Lines: Peripheral IV Code status: Full code Plan of care discussed with attending Dr. Enamorado. Mayank Sousa MD PGY?1
[2024-07-31] MEDS: AMIODARONE 360 MG IVPB 360 MG/200 ML BAG 16.667 MG IV (21:26)
[2024-08-01] VITALS: BP 114/68; PULSE 67; PULSE 82; RESP 17; TEMP 36.4; O2SAT 99
[2024-08-01 04:00] VITALS: BP 123/69; PULSE 61; PULSE 66; RESP 12; TEMP 36.3; O2SAT 100
[2024-08-01 05:29] VITALS: BP 123/69; PULSE 86
[2024-08-01] MEDS: DILTIAZEM 30 MG TABLET 60 MG PO (05:29)
[2024-08-01 05:49] VITALS: BMI 30.5
[2024-08-01 06:34] LABS: Basophils # (Auto) 0.1 Thou/mm3 (0.0-0.2); Basophils % (Auto) 1 % (0-2.5); Eosinophils # (Auto) 0.1 Thou/mm3 (0.0-0.5); Eosinophils % (Auto) 1 % (0-10); Hematocrit 45.9 % (41.0-53.0); Hemoglobin 16.4 g/dL (13.5-16.0); Immature Granulocytes % (Auto) 0 % (0-0); Immature Granulocytes Auto 0.02 Thou/mm3 (0.00-0.00); Lymphocytes # (Auto) 3.3 Thou/mm3 (1.0-4.8); Lymphocytes % (Auto) 38 % (10-50); Mean Corpuscular HGB Conc 35.7 g/dl (31.0-37.0); Mean Corpuscular Hemoglobin 30.7 pg (25.0-35.0); Mean Corpuscular Volume 86 fL (80-100); Monocytes # (Auto) 0.6 Thou/mm3 (0.0-0.8); Monocytes % (Auto) 7 % (0-12); Neutrophils # (Auto) 4.5 Thou/mm3 (1.8-7.7); Neutrophils % (Auto) 53 % (37-80); Nucleated Red Blood Cell % 0 /100 WBC (0); Platelet Count 237 Thou/mm3 (140-440); RDW Standard Deviation 37.8 fL (35.1-43.9); Red Blood Count 5.34 Miln/mm3 (4.50-5.90); White Blood Count 8.5 Thou/mm3 (3.8-10.6)
[2024-08-01 07:10] LABS: Anion Gap 8 (7-16); BUN/Creatinine Ratio 15 Ratio (12-20); Blood Urea Nitrogen 16 mg/dL (9-23); Calcium 9.8 mg/dL (8.3-10.6); Carbon Dioxide 28.4 mMol/L (20.0-31.0); Chloride 105 mMol/L (98-107); Creatinine (Component) 1.1 mg/dL (0.6-1.3); Estimated Creatinine Clearance 124.4 mL/min (>60); Glucose 93 mg/dL (74-106); Magnesium 2.1 mg/dL (1.6-2.6); Osmolality,Calculated 282 (275-295); Phosphorous 4.8 mg/dL (2.4-5.1); Potassium 4.2 mMol/L (3.4-5.1); Sodium 141 mMol/L (136-145); eGFR > 60 See Note
--- NOTE | 2024-08-01 07:21 | EKG_ITS ---
[facility] Test Date: 2024-08-01 Pat Name: MELISSA REYES [facility] Gender[facility] Financial Institution Treasurer: ABDOUL : 2000 Requested By: Moreno Garcia Order Number: [id number] Reading MD: Moreno Garcia Measurements Intervals [place] Rate: 57 P: 29 DE: 143 QRS: 74 QRSD: 107 T: 19 QT: 413 QTc: 403 Interpretive Statements SINUS BRADYCARDIA Compared to ECG 07/31/2024 00:10:32 Atrial fibrillation no longer present /store/S0/[id number].pdf
[2024-08-01 08:00] VITALS: BP 123/72; PULSE 59; PULSE 69; RESP 18; TEMP 36.6; O2SAT 97
--- NOTE | 2024-08-01 08:52 | ESDS_ITS ---
<Statement entered by Josie Mclaughlin DO - 08/02/24 08:16> I, Josie Mclaughlin DO, attest that I was physically present for the reyna portions of the service and evaluated the patient with the resident and I reviewed and discussed the case with the resident and agree with the resident's findings and plans of care as documented above <Statement entered by Manjit Gonzalez MD - 08/01/24 17:04> I discussed with and supervised the audit intern physician involved in the care of this patient. Patient assessment and plan was discussed with entire medicine team, including my attending. I agree with the assessment and plan as documented by audit intern doctor. Patient care was discussed with my attending physician Dr. Lissette Gonzalez, PGY-2 Planned Discharge Date 08/01/24 DS: Providers Provider Date of admission: 07/31/24 02:27 Primary care physician: Dunia Hall NP Admitting Provider: Elliot Pickett MD Attending Provider on Admission: Elliot Pickett MD Consults: 07/31/24 02:28 Consult to Cardiology Routine Comment: afib Consulting Provider: Estefani Enamorado Attending Provider on DC: Josie Mclaughlin DO Discharging Provider: Moreno Garcia MD DS: Diagnosis Problem List Completed Was Problem List Reviewed/Reconciled?: Yes Hospital Course Hospital Course Hospital course: Patient is a 23-year-old male with past history of paroxysmal A-fib [2020] no longer on rate control presented with a chief complaint of palpitations and shortness of breath. Admitted for atrial fibrillation with RVR. For patient's A-fib with RVR, initially his heart rate was in the 150s?170s given diltiazem slowed to the 110s. Subsequently diltiazem infusion at 5 Mg per hour was initiated. On 07/31/2024, patient continued to be in A-fib with heart rate fluctuating between the 110/150s, diltiazem infusion was increased to 10 Mg per hour and patient started on amiodarone bolus and subsequent infusion. Around 2300 on 07/31/2024, patient converted to sinus rhythm and amiodarone and diltiazem infusion was subsequently discontinued and patient started on diltiazem 60 Mg p.o. every 6 hourly. Cardiology, Dr. Omari Enamorado was consulted and closely followed the case. This is only the second episode of paroxysmal A-fib in the past 4 years. As per cardiology recommendations we will discharge patient on metoprolol succinate 50 Mg p.o. as needed and flecainide 100 Mg p.o. as needed for A-fib symptoms that persists for 30 minutes or longer. All patient's labs have now returned to his baseline. Patient is now clinically stable and fit for discharge to home. Discharge diagnoses: 1. Atrial fibrillation with RVR?resolved, paroxysmal Discharge plan: - You have been prescribed a medication Flecainide. If you experience symptoms of A fib including palpitations and shortness of breath that persist for more than 30 minutes, take one pill as needed. - You have been prescribed a medication Metoprolol. If you experience symptoms of A fib including palpitations and shortness of breath that persist for more than 30 minutes, take one pill as needed. - Follow up with Mammal K[facility] Dr Omari Enamorado within 2 weeks of discharge. - Follow up with your primary care physician within 1 week of discharge. If you do not have a primary care physician, please follow up with the [facility] Residents clinic ([phone]) ? If you experience any new, worsening or persistent symptoms either call your primary doctor, or dial 911 or present to the emergency department. We are grateful to be able to participate in Mr. Camacho's care. We wish him the best. Plan of care discussed with Attending Dr. Mclaughlin and PGY2 Dr. Carlos Garcia MD PGY 1 Time Spent with Patient Time attestation: Total time spent providing and/or coordinating discharge services: Time spent: Greater than 30 minutes (37) Exam Vital Signs Temp Pulse Resp BP Pulse Ox O2 Del Method 97.9 F 59 L 18 123/72 97 Room Air 08/01/24 08:00 08/01/24 08:00 08/01/24 08:00 08/01/24 08:00 08/01/24 08:00 08/01/24 08:00 Narrative Exam Constitutional Alert, oriented x 3 and comfortable. Young male HEENT Vision grossly intact. Patent nares. Trachea midline Respiratory Chest normal on inspection and clear auscultation bilaterally Cardiovascular S1 and S2 audible, RRR. No murmurs carotid bruit. No gross JVD. Abdominal Soft and non tender to palpation in all quadrants. BS + Genitourinary No bladder tenderness, no flank pain. Normal to palpation Musculoskeletal Extremities tone within normal limits. No LE edema. Neurological CN II - XII grossly intact. Extremity motor and sensation grossly intact. Skin Warm, dry and intact. No apparent lesions. Psychiatric Patient has good affect, is cooperative Discharge Plan Plan Patient Disposition: HOME (Self Care) Care Plan Goals: - You have been prescribed a medication Flecainide. If you experience symptoms of A fib including palpitations and shortness of breath that persist for more than 30 minutes, take one pill as needed. - You have been prescribed a medication Metoprolol. If you experience symptoms of A fib including palpitations and shortness of breath that persist for more than 30 minutes, take one pill as needed. - Follow up with Mammal Keeper Dr Omari Enamorado within 2 weeks of discharge. - Follow up with your primary care physician within 1 week of discharge. If you do not have a primary care physician, please follow up with the [facility] Residents clinic ([phone]) ? If you experience any new, worsening or persistent symptoms either call your primary doctor, or dial 911 or present to the emergency department. Prescriptions/Referrals Prescriptions/Med Rec: New metoprolol succinate 50 mg tablet extended release 24 hr 50 mg PO QDAY Qty: 30 0RF Rx Instructions: 50 mg orally as needed flecainide 100 mg tablet 100 mg PO QDAY Qty: 30 0RF Referrals: Dunia Hall NP [Primary Care Provider] - Estefani Enamorado MD [Physician] - Patient/Caregiver Discharge Instructions Education Materials: Metoprolol Succinate 24 Hour Oral Tablet 50 mg, Flecainide acetate Oral Tablet 100 mg, AFL/Afib Print Language: Swedish Stand Alone Forms: [employer] Info[employer] Patient Portal Info Letter Discharge Order Discharge Orders: Discharge (Routine); Ordered 08/01/24 Ordered By: Moreno Garcia Quality Discharge Quality Measures VTE prophylaxis
[2024-08-01] MEDS: ENOXAPARIN SOD INJ 40 MG/0.4 ML SYRINGE SC (09:18)
--- NOTE | 2024-08-01 10:41 | PC.SS ---
SS met with patient regarding his d/c plan.? Pt is alert/oriented.? Pt was admitted for AFIB.? Pt confirmed demographic and contact information is correct on facesheet.? Pt resides with parents.? Pt ambulates independently without assistance or DME.? Pt is ok with all ADLs.? 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 Pt named his dad, Omid Camacho, phone# [phone] medical decision maker if he is unable.? SS attempted to contact pt registration to update patient's dad information but was unsuccessful.? Patient?s choice is to return home upon d/c.? Pt does not have an advance directive, SS offered, and pt declined.? Pt states not diabetic and is not on dialysis.? Pt states he followed up with PCP in July 14, 2024 and his next appointment is scheduled for August 13, 2024. D/C plan:? Return home Next of Kin:? Omid Camacho, dad, phone# [phone] PCP:? Dr. Dunia Hall Address:? Correct on facesheet
[2024-08-01 12:00] VITALS: BP 129/79; PULSE 64; PULSE 73; RESP 24; TEMP 36.6; O2SAT 95
[2024-08-01 12:45] VITALS: BP 129/79; PULSE 73; RESP 24; TEMP 36.6; O2SAT 95
--- NOTE | 2024-08-01 15:54 | ESPR_ITS ---
RE: MELISSA REYES : 2000 DATE OF SERVICE: 08/01/2024 SUBJECTIVE: The patient is seen for cardiovascular assessment admitted to the hospital with acute atrial fibrillation with rapid ventricular response yesterday, converted to sinus rhythm with IV amiodarone overnight. He is feeling better. No shortness of breath chest pain, orthopnea or PND. No headache or dizziness. OBJECTIVE: Vital Signs: Showed his blood pressure is 130/70, pulse rate is 70 and regular, respirations 16, and temperature normal. Neck: Supple. No JVD. Chest: Symmetrical. Lungs: Clear. Heart: S1 and S2. Regular sinus rhythm. Abdomen: Thin and soft. Extremities: No edema. Genitourinary and Rectal: Not performed. IMPRESSION: Paroxysmal atrial fibrillation, second episode in 4 years, back to sinus rhythm. RECOMMENDATIONS: We will discharge the patient now on uulh-ad-xji-pocket strategy, flecainide 100 mg if he goes into atrial fibrillation and also metoprolol 50 mg. No need for any anticoagulation. CHADS-VASC score is 0. We will see him for followup in 2-3 weeks as an outpatient. DT: 14:44:54 TT: 15:44:00 Ref: [id number] - TID: [id number]
== END 2024-08-01 12:55 | disposition home or self-care (01) | DRG 310 ==
LOC: SERX 07-31 02:57 → SERHOLD 07-31 03:02 → S2NX 07-31 05:53
PROVIDERS: Admitting Provider Internal Medicine; Emergency Provider Emergency Medicine; PCP Nurse Practitioner Family; Visit Provider Internal Medicine
DX: I48.0 Paroxysmal atrial fibrillation (principal); J45.990 Exercise induced bronchospasm; I34.1 Nonrheumatic mitral (valve) prolapse; D75.1 Secondary polycythemia; E83.52 Hypercalcemia; Z79.51 Long term (current) use of inhaled steroids
CPT/HCPCS: 36415; 71045; 80048; 80053; 80307; 83735; 84100; 84439; 84443; 84484; 85025; 93005; 93306; J0283; J1650; J3475; J3490; J7030; A9270

== ENCOUNTER → 2024-09-07 | Outpatient (CLI) | payer OTHER, BC, SELFPAY ==
[2024-09-07 08:09] LABS: Collection Type, Urine Clean Catch; Squamous Epithelial Cell,Urine 0 /hpf (0-5)
[2024-09-07 08:31] LABS: Basophils # (Auto) 0.1 Thou/mm3 (0.0-0.2); Basophils % (Auto) 1 % (0-2.5); Eosinophils # (Auto) 0.1 Thou/mm3 (0.0-0.5); Eosinophils % (Auto) 1 % (0-10); Hemoglobin 15.5 g/dL (13.5-16.0); Immature Granulocytes % (Auto) 1 % (0-0); Immature Granulocytes Auto 0.06 Thou/mm3 (0.00-0.00); Lymphocytes # (Auto) 2.4 Thou/mm3 (1.0-4.8); Lymphocytes % (Auto) 32 % (10-50); Mean Corpuscular Hemoglobin 30.8 pg (25.0-35.0); Mean Corpuscular Volume 86 fL (80-100); Monocytes # (Auto) 0.4 Thou/mm3 (0.0-0.8); Monocytes % (Auto) 6 % (0-12); Neutrophils # (Auto) 4.3 Thou/mm3 (1.8-7.7); Neutrophils % (Auto) 59 % (37-80); Nucleated Red Blood Cell % 0 /100 WBC (0); Platelet Count 238 Thou/mm3 (140-440); RDW Standard Deviation 37.1 fL (35.1-43.9); Red Blood Count 5.03 Miln/mm3 (4.50-5.90); White Blood Count 7.3 Thou/mm3 (3.8-10.6)
[2024-09-07 08:42] LABS: Bilirubin,Urine Negative (Negative); Blood,Urine Negative (Negative); Clarity,Urine Clear (Clear/Hazy); Color,Urine Colorless (Lt Yel-Yel); Culture Indicated,Urine Not Indicated; Glucose, Urine Negative (Negative); Ketones,Urine Negative (Negative); Leukocyte Esterase,Urine Negative (Negative); Nitrite,Urine Negative (Negative); PH,Urine 6.5 (5.0-7.0); Protein,Urine Negative (Neg - Trace); RBC,Urine < 1 /hpf (0-3); Specific Gravity,Urine 1.005 (1.001-1.035); Urobilinogen,Urine Negative mg/dL (0.0-1.0); WBC,Urine < 1 /hpf (0-5)
[2024-09-07 08:53] LABS: Alanine Aminotransferase 17 U/L (10-49); Albumin, Serum 4.4 gm/dL (3.5-5.0); Albumin/Globulin Ratio 1.8 (1.2-2.2); Alkaline Phosphatase 84 U/L (46-116); Anion Gap 9 (7-16); Aspartate Amino Transferase 15 U/L (0-34); BUN/Creatinine Ratio 13 Ratio (12-20); Bilirubin,Total 0.9 mg/dL (0.3-1.2); Blood Urea Nitrogen 13 mg/dL (9-23); Calcium 9.7 mg/dL (8.3-10.6); Calcium (Corrected) 9.7 mg/dL (8.5-10.1); Carbon Dioxide 27.2 mMol/L (20.0-31.0); Cardiac Risk Estimate 3.3 RATIO (4.0-6.7); Chloride 107 mMol/L (98-107); Cholesterol 156 mg/dL (132-200); Globulin 2.4 gm/dL (2.3-3.5); Glucose 90 mg/dL (74-106); HDL Cholesterol 47 mg/dL (40-60); LDL Cholesterol,Calculated 94 mg/dL (0-130); Osmolality,Calculated 285 (275-295); Potassium 4.6 mMol/L (3.4-5.1); Sodium 143 mMol/L (136-145); Thyroid Stimulating Hormone 1.83 uIU/mL (0.55-4.78); Total Protein 6.8 gm/dL (5.7-8.2); Triglycerides 75 mg/dL (30-150); eGFR > 60 See Note
[2024-09-07 09:01] LABS: Syphilis Nonreactive (Nonreactive)
[2024-09-07 09:28] LABS: Hepatitis A Antibody IgM Non Reactive (Non React); Hepatitis B Core Antibody IgM Non Reactive (Non React); Hepatitis B Surface Antigen Non Reactive (Non React); Hepatitis C Antibody Non Reactive (Non React); Vitamin D 25 Hydroxy Total 30.2 ng/mL (7.3-40.2)
[2024-09-07 14:04] LABS: Chlamydia trachomatis PCR Negative (Not Detect); Neisseria Gonorrhoeae DNA PCR Negative (Not Detect); Trichomonas Negative (Negative)
[2024-09-07 15:57] LABS: HIV (1&2) Antibody Rapid Non-Reactive
== END | disposition home or self-care (01) ==
PROVIDERS: PCP Family Medicine; Referring Provider Nurse Practitioner Family; Visit Provider Nurse Practitioner Family
DX: Z00.00 Encounter for general adult medical examination without abnormal findings (principal)
CPT/HCPCS: 36415; 80053; 80061; 80074; 81001; 82306; 83735; 84443; 85025; 86703; 86780; 87491; 87591; 87661